=== PATIENT | female | born 1995 | race Caucasian/White ===

== ENCOUNTER 2020-02-25 23:14 | Outpatient (CLI) | payer BC ==
[2020-02-26 01:15] VITALS: BP 130/82; PULSE 85; RESP 16; TEMP 96
--- NOTE | 2020-03-27 18:54 | P.MSEPDOC ---
Presenting Problems - Arrival Data Date of Arrival on Unit: 02/26/20 Time of Arrival on Unit: 23:14 Mode of Transport: Ambulatory - Complaint OB-Reason for Admission/Chief Complaint: Decreased Movement Comment: Patient states she has not felt the baby move since last evening around. midnight. She also states she "failed" an NST last week at the doctors office. RN. explained the NST process and handed the patient a button to press when she feels the. baby move. Patient verbalizes understanding. Medical History - Information : 1 Para: 0 Term: 0 : 0 Abortions: Spontaneous or Elective: 0 Number of Living Children: 0 - Gestational Age Gestational Age by CAROL (wks/days): 34 Weeks and 0 Days Review of Systems - Review of Systems Constitutional: No problems Breast: No problems ENT: No problems Cardiovascular: No problems Respiratory: No problems Gastrointestinal: No problems Genitourinary: No problems Musculoskeletal: No problems Neurological: No problems Skin: No problems Vital Signs - Temperature Temperature: 96.0 F Temperature Source: Temporal Artery Scan - Pulse Right Brachial Pulse Rate: 85 Pulse Assessment Method: Automatic Cuff - Respirations Respiratory Rate: 16 Oxygen Delivery Method: Room Air - Blood Pressure Right Arm Blood Pressure: 130/82 Blood Pressure Mean: 98 Blood Pressure Source: Automatic Cuff Medical Screen Scoring (Pre) - Cervical Exam Dilation: Exam Deferred Effacement: Exam Deferred Membranes: Intact - Uterine Contractions Frequency: N/A Duration: N/A Intensity: N/A - Maternal Vital Signs Maternal Temperature: N/A Maternal Blood Pressure: N/A Signs of Preeclampsia: N/A Maternal Respirations: N/A - Maternal Trauma Maternal Trauma: N/A - Assessment - Baby A Baseline FHR: 125 Heart Rate - NICHD Category: Category I (Normal) = 0 NST: Reactive Position: N/A Station: N/A - Total Score - Baby A Total Score - Baby A: 0 - Total Score - Baby B Total Score - Baby B: 0 - Total Score - Baby C Total Score - Baby C: 0 - Level of Risk - Baby A Level of Risk - Baby A: Low (0-5) - Level of Risk - Baby B Level of Risk - Baby B: Low (0-5) - Level of Risk - Baby C Level of Risk - Baby C: Low (0-5) Physician Notification (Pre) - Physician Notified Physician Notified Date: 02/26/20 Physician Notified Time: 00:00 New Order Received: Yes - Notification Comment Comment: RN spoke with . RN notified the DrVanesa that patient arrived to triage. with complaints of decreased movement since midnight the day prior. NST was. completed and reactive. Patient stated she had felt the baby move multiple times since. being here. Patient would like to go home. VItal signs were WNL. Patient to be. discharged with instructions to keep her follow up appt. on Thursday with Dr. Knapp. Patient updated and in agreement.Kick count instructions given and read over with patient. Patient has no. questions at this time. Disposition - Disposition OB Disposition: Discharge to home Discharge Date: 02/26/20 Discharge Time: 00:30 I agree with the RN Medical Screening Exam: Yes Case reviewed; plan agreed upon as documented in EMR&OBIX.: Yes Diagnosis: decreased movement
== END 2020-02-26 00:30 | disposition home or self-care (01) ==
LOC: FBPOP 23:14
PROVIDERS: ATTEND Obstetrics & Gynecology
DX: O36.8130 Decreased fetal movements, third trimester, not applicable or unspecified (principal); Z3A.34 34 weeks gestation of pregnancy
CPT/HCPCS: 59025; 99213

== ENCOUNTER 2020-04-12 06:05 | Inpatient (IN) | payer BC ==
[2020-04-12] MEDS ORDERED: LIDOCAINE 0.5% (PF) 5 MG/ML (50 ML SDV) SQ PRN (06:16)
[2020-04-12] MEDS ORDERED: METHYLERGONOVINE 0.2 MG/ML 1 ML AMP IM PRN (06:16)
[2020-04-12] MEDS ORDERED: OXYTOCIN 10 UNIT/ML 1 ML VIAL IM PRN (06:16)
[2020-04-12] MEDS ORDERED: CARBOPROST TROMETHAMINE 250 MCG/ML 1 ML AMP IM PRN (06:16)
[2020-04-12] MEDS ORDERED: TERBUTALINE 1 MG/ML VIAL SQ PRN (06:16)
[2020-04-12] MEDS: LACTATED RINGERS 1,000 ML IV SCH ×4 (06:24→22:50)
[2020-04-12] MEDS ORDERED: OXYTOCIN 30 UNITS/500 ML NS 30 UNIT in SALINE 1 500ML.BAG IV SCH ×2 (06:30→21:00)
[2020-04-12 06:54] LABS: Anisocytosis Slight; Basophils % (A) 0 %; Eosinophils # (A) 0.1 k/uL (0-0.7); Eosinophils % (A) 1 %; HCT 32.9 % (34.0-46.0); HGB 10.5 gm/dL (11.4-16.0); Hypochromasia Slight; Lymphocytes % (A) 22 %; MCH 25.7 pg (25.0-35.0); MCHC 32.1 g/dL (31.0-37.0); MCV 79.9 fL (80.0-100.0); Mean Platelet Volume 10.3; Monocytes # (A) 0.4 k/uL (0-1.0); Monocytes % (A) 5 %; Neutrophils # (A) 6.4 k/uL (1.3-7.7); Neutrophils % (A) 71 %; Platelet Count 258 k/uL (150-450); RBC 4.11 m/uL (3.80-5.40); RDW 16.5 % (11.5-15.5); WBC 9.1 k/uL (3.8-10.6)
--- NOTE | 2020-04-12 08:37 | P.HPOB ---
History of Present Illness H&P Date: 04/12/20 Chief Complaint: IUP at 40-4/7 weeks, postdates This is a 24-year-old 1 para 0 at 40-4/7 weeks that presents to labor and delivery for induction of labor. Patient has been receiving routine care that has been essentially uncomplicated. Patient notes good movement denies contractions vaginal bleeding or loss of fluid. On bloodwork patient has a blood type of O+, rubella status immune, hepatitis B surface antigen negative, HIV negative, group beta strep is negative. Review of Systems Constitutional: Denies chills, Denies fatigue, Denies fever Ears, nose, mouth and throat: Denies headache Cardiovascular: Reports leg edema Gastrointestinal: Denies nausea, Denies vomiting Genitourinary: Reports Past Medical History Past Medical History: No Reported History History of Any Multi-Drug Resistant Organisms: None Reported Past Surgical History: No Surgical Hx Reported Past Anesthesia/Blood Transfusion Reactions: No Reported Reaction Past Psychological History: No Psychological Hx Reported Smoking Status: Never smoker Past Alcohol Use History: None Reported Past Drug Use History: None Reported - Past Family History Mother Family Medical History: Asthma Father Family Medical History: Hypertension Medications and Allergies Home Medications Medication Instructions Recorded Confirmed Type Pnv,Calcium 72/Iron/Folic Acid 1 tab PO DAILY 11/17/19 04/12/20 History [ Plus Tablet] Allergies Allergy/AdvReac Type Severity Reaction Status Date / Time No Known Allergies Allergy Verified 04/12/20 06:15 Exam Osteopathic Statement: *. No significant issues noted on an osteopathic structural exam other than those noted in the History and Physical/Consult. Vital Signs Temp Pulse Resp BP Pulse Ox 04/12/20 06:18 96.2 F L 113 H 16 140/82 98 Intake and Output 04/11/20 04/12/20 04/12/20 22:59 06:59 14:59 Other: Weight 104.78 kg Targeted physical exam is performed in this date and director prison a well-nourished well-developed female in no acute distress, breathing is noted to nonlabored, heart has regular rhythm, abdomen is gravid and appropriate for gestational age, heart tones returned be category 1 and she is mark every 4 minutes. On cervical exam she is 1/50/-2, amniotomy is performed and clear fluid was obtained. Results Result Diagrams: 04/12/20 06:25 Abnormal Lab Results - Last 24 Hours (Table) 04/12/20 Range/Units 06:25 Hgb 10.5 L (11.4-16.0) gm/dL Hct 32.9 L (34.0-46.0) % MCV 79.9 L (80.0-100.0) fL RDW 16.5 H (11.5-15.5) % Assessment and Plan (1) Post-dates Current Visit: Yes Status: Acute Code(s): O48.0 - POST-TERM SNOMED Code(s): 53014773 Plan: This 24-year-old 1 para 0 at 40-4/7 weeks is admitted to labor and [facility] for induction of labor secondary to postdates. IV Pitocin is begun per hospital protocol. Stadol and epidural are discussed patient will decide which she desires.
[2020-04-12] MEDS: PRENATAL VIT-IRON-FOLIC ACID 1 EACH CAP PO SCH (11:38)
[2020-04-12] MEDS: BUTORPHANOL 1 MG/ML 1 ML VIAL IV PRN ×2 (14:17→16:15)
[2020-04-12] MEDS ORDERED: ROPIVACAINE 5MG/ML 20ML VIAL ONE (17:06)
[2020-04-12] MEDS ORDERED: SODIUM CHLORIDE 0.9% 100 ML BAG ONE (17:06)
[2020-04-12] MEDS ORDERED: fentaNYL (PF) 50 MCG/ML 5 ML AMP ONE (17:06)
[2020-04-12] MEDS ORDERED: CITRIC ACID-SODIUM CITRATE 15 ML CUP PO ONE (20:52)
[2020-04-12] MEDS ORDERED: ONDANSETRON 4 MG/2 ML VIAL IVP PRN (20:54)
[2020-04-12] MEDS ORDERED: ZOLPIDEM 5 MG TAB PO PRN (20:54)
[2020-04-12] MEDS ORDERED: NALOXONE 0.4 MG/ML 1 ML VIAL IV PRN (20:54)
[2020-04-12] MEDS ORDERED: METOCLOPRAMIDE 5 MG/ML 2 ML VIAL IVP PRN (20:54)
[2020-04-12] MEDS ORDERED: diphenhydrAMINE 50 MG CAP PO PRN (20:54)
[2020-04-12] MEDS ORDERED: diphenhydrAMINE 25 MG CAP PO PRN (20:54)
[2020-04-12] MEDS ORDERED: diphenhydrAMINE 50 MG/ML 1 ML VIAL IVP PRN ×2 (20:54)
[2020-04-12] MEDS ORDERED: SIMETHICONE 80 MG CHEWABLE PO PRN (20:54)
[2020-04-12] MEDS ORDERED: ONDANSETRON 4 MG/2 ML VIAL ONE (21:10)
[2020-04-12] MEDS ORDERED: MIDAZOLAM 2 MG/2 ML VIAL ONE (21:10)
[2020-04-12] MEDS ORDERED: MORPHINE SULFATE (PF) 0.3 MG/0.3 ML SYR ONE (21:10)
[2020-04-12] MEDS ORDERED: HYDROmorphone (PF) 1 MG/ML ONE (21:10)
--- NOTE | 2020-04-12 22:11 | P.OP ---
Date of Procedure: 04/12/20 Preoperative Diagnosis: IUP @ 40 4/7 weeks, arrest of dilation and descent, meconium stained fluid Postoperative Diagnosis: same Procedure(s) Performed: Primary section Anesthesia: epidural Surgeon: Malgorzata Knapp Health Information Tech #1: Paulette Panchal Estimated Blood Loss (ml): 800 IV fluids (ml): 2,000 Urine output (ml): 300 Pathology: other (Placenta) Condition: stable Disposition: observation Indications for Procedure: This is a 24-year-old 1 para 0 at 40-4/7 weeks that presented earlier today for induction of labor secondary to postdates. Patient was admitted and Pitocin induction of labor was begun amniotomy was performed and clear fluid was obtained. Patient made very minimal progress throughout the day eventually stalling at 5 cm. Infant was noted to be a -2 station with no change in station throughout the labor process. Decision for primary was discussed with patient patient states understanding and patient was taken back to the operating suite. Risks were reviewed with patient in detail including but not limited to infection, bleeding, damage to bladder, bowel, injury. Patient stated understanding and questions were answered. Operative Findings: Viable female infant delivered at 2125, weight of 7 lbs. 4 oz. and Apgars of 9 and 9 at one and 5 minutes respectively Description of Procedure: Patient was taken back to the operating suite where epidural anesthesia was found be adequate. She was prepped and draped in the normal sterile fashion in the dorsal supine position a Pfannenstiel skin incision was made the scalpel and carried through the underlying layer of fascia with the couple. The fascia was then incised in the midline and extended laterally. The superior aspect of the fascial incision was then grasped omkar clamps, elevated and underlying rectus muscles dissected off sharply. Attention was then turned to the inferior aspect the fascial incision which was grasped with [place] clamps, elevated and underlying rectus muscles dissected off sharply. Rectus muscles were in the midline the peritoneum was identified and entered. This incision was then extended superiorly and inferiorly with good visualization the bladder. The bladder blade was then inserted. The vesicouterine peritoneum was identified and the bladder flap was then created using blunt dissection. Hysterotomy incision was made with the scalpel the was encountered in a vertex presentation. The infant was then delivered in the usual fashion. The vocal cord was doubly clamped and cut and cord blood was then taken. The was handed off to awaiting RN. The placenta was then delivered manually with a three-vessel cord being noted. The uterus was delivered from the abdomen and the uterine incision was closed with 0 Vicryl in a running fashion from one lateral edge the other. A second imbricating suture was used. Bleeding was noted on the left-hand side of the uterus in multiple cobavw-el-yilbr sutures were used to obtain hemostasis. FloSeal was placed along the hysterotomy incision. The English was noted be draining clear yellow urine throughout the procedure. The uterus was returned to the abdomen prior to FloSeal application. The gutters were cleared of all clots and debris and hemostasis was appreciated. The peritoneum was loosely reapproximated. The fascia was then closed with 0 Vicryl in a running fashion from one lateral edge the other. The subcu cutaneous tissue was irrigated and found to be hemostatic. The subcu tissue was then closed with 3-0 Vicryl in a running fashion. The skin was then closed with 4-0 Vicryl in a subcuticular fashion. Steri-Strips and sterile dressings were applied. All counts were noted be correct times 2 at the end of the procedure. Patient and infant tolerated delivery well and are resting comfortably.
[2020-04-12] MEDS: ACETAMINOPHEN IV (For NPO) 1,000 MG in EMPTY BAG 1 BAG IVPB SCH (22:48)
[2020-04-12 23:40] LABS: Anisocytosis Slight; HCT 27.2 % (34.0-46.0); Hypochromasia Slight; MCH 26.4 pg (25.0-35.0); MCHC 33.1 g/dL (31.0-37.0); MCV 79.8 fL (80.0-100.0); Mean Platelet Volume 10.6; Platelet Count 222 k/uL (150-450); RBC 3.41 m/uL (3.80-5.40); RDW 16.6 % (11.5-15.5); WBC 19.6 k/uL (3.8-10.6)
[2020-04-13] MEDS: IBUPROFEN IV 800 MG in SODIUM CHLORIDE 0.9% 250 ML IV SCH ×4 (04:06→21:41)
[2020-04-13] MEDS: IBUPROFEN 600 MG TAB PO SCH ×4 (04:29→22:15)
[2020-04-13] MEDS: ACETAMINOPHEN IV (For NPO) 1,000 MG in EMPTY BAG 1 BAG IVPB SCH (05:39)
[2020-04-13] MEDS: LACTATED RINGERS 1,000 ML IV SCH ×3 (05:46→21:39)
[2020-04-13] MEDS: PRENATAL VIT-IRON-FOLIC ACID 1 EACH CAP PO SCH (08:16)
[2020-04-13] MEDS: SENNOSIDES-DOCUSATE SODIUM 1 EACH TAB PO SCH ×2 (08:16→20:01)
--- NOTE | 2020-04-13 08:44 | P.PNOBGPC ---
Subjective - Subjective Principal diagnosis: Postop day 1, low transverse section Interval history: Patient did well overnight. She is ambulate without difficulty. English came out about 5:45 this morning no spontaneous void yet. No nausea or vomiting tolerating clear liquids. She states her pain is well-controlled. She is breast-feeding Patient reports: Reports appetite normal, Reports voiding normally, Reports pain well controlled, Reports ambulating normally [place]: doing well, nursing well Objective - Vital Signs Latest vital signs: Vital Signs Temp Pulse Resp BP Pulse Ox 04/13/20 08:00 97.7 F 89 16 130/77 99 04/13/20 04:00 98.8 F 92 16 112/71 100 04/13/20 00:07 98.1 F 112 H 16 124/67 99 04/12/20 23:37 99 16 119/62 99 04/12/20 23:07 102 H 16 121/62 94 L 04/12/20 22:52 88 16 133/77 99 04/12/20 22:37 87 16 127/63 100 04/12/20 22:22 118 H 16 129/78 100 04/12/20 22:07 97.1 F L 112 H 16 131/80 98 Intake and Output 04/12/20 04/13/20 04/13/20 22:59 06:59 14:59 Intake Total 2000 Output Total 1200 1100 Balance 800 -1100 Intake: IV 2000 Output: Urine 300 1100 Uretheral (English) 800 Estimated Blood Loss 900 - Exam Extremities: Present: normal, edema Abdomen: Present: normal appearance, soft Incision: Present: normal, dry, intact Uterus: Present: normal, firm - Labs Labs: Abnormal Lab Results - Last 24 Hours (Table) 04/12/20 Range/Units 22:50 WBC 19.6 H (3.8-10.6) k/uL RBC 3.41 L (3.80-5.40) m/uL Hgb 9.0 L D (11.4-16.0) gm/dL Hct 27.2 L (34.0-46.0) % MCV 79.8 L (80.0-100.0) fL RDW 16.6 H (11.5-15.5) % Assessment and Plan (1) Post-dates Current Visit: Yes Status: Acute Code(s): O48.0 - POST-TERM SNOMED Code(s): 80758871 (2) Arrest of dilation, delivered, current hospitalization Current Visit: Yes Status: Acute Code(s): O62.1 - SECONDARY UTERINE INERTIA SNOMED Code(s): 44861155 (3) Arrest of descent, delivered, current hospitalization Current Visit: Yes Status: Acute Code(s): O62.1 - SECONDARY UTERINE INERTIA SNOMED Code(s): 21864615 (4) S/P section Current Visit: Yes Status: Acute Code(s): Z98.891 - HISTORY OF UTERINE SCAR FROM PREVIOUS SURGERY SNOMED Code(s): 832061978 Plan: This 24-year-old G1 now P1 status post primary for arrest of descent and dilation is doing well. Will plan routine postoperative care today, anticipate discharge home tomorrow discharge instructions are reviewed with patient
--- NOTE | 2020-04-13 08:49 | P.PN ---
Progress Note - Text 04/13/20 818am 24-year-old female status post with an epidural catheter. Patient was bolused with Duramorph after the procedure, patient has VAS of 1 at rest. She has complains of mild pruritus. Doing fine this morning
[2020-04-13 09:42] LABS: Anisocytosis Slight; Basophils % (A) 0 %; Eosinophils # (A) 0.1 k/uL (0-0.7); Eosinophils % (A) 1 %; HCT 24.9 % (34.0-46.0); HGB 8.2 gm/dL (11.4-16.0); Hypochromasia Slight; Lymphocytes # (A) 1.7 k/uL (1.0-4.8); Lymphocytes % (A) 18 %; MCH 26.5 pg (25.0-35.0); MCHC 32.9 g/dL (31.0-37.0); MCV 80.6 fL (80.0-100.0); Mean Platelet Volume 10.4; Monocytes # (A) 0.5 k/uL (0-1.0); Monocytes % (A) 5 %; Neutrophils # (A) 7.5 k/uL (1.3-7.7); Neutrophils % (A) 76 %; Platelet Count 183 k/uL (150-450); RBC 3.09 m/uL (3.80-5.40); RDW 16.6 % (11.5-15.5); WBC 9.9 k/uL (3.8-10.6)
[2020-04-13] MEDS: ACETAMINOPHEN TAB 500 MG TAB PO PRN (22:04)
[2020-04-14] MEDS: IBUPROFEN 600 MG TAB PO SCH ×2 (00:09→06:16)
[2020-04-14] MEDS: ACETAMINOPHEN TAB 500 MG TAB PO PRN (04:22)
[2020-04-14] MEDS: PRENATAL VIT-IRON-FOLIC ACID 1 EACH CAP PO SCH (08:27)
[2020-04-14] MEDS: SENNOSIDES-DOCUSATE SODIUM 1 EACH TAB PO SCH (08:27)
[2020-04-14 08:39] VITALS: BP 132/84; PULSE 78; RESP 18; TEMP 97.9
--- NOTE | 2020-04-15 09:21 | P.DS ---
Providers Date of admission: 04/12/20 06:05 Expected date of discharge: 04/14/20 Attending physician: Malgorzata Knapp Primary care physician: Stated None Hospital Course: This is a 24-year-old female 1 para 0 who presented in active labor with an unremarkable . Ultimately the decision was made for primary low transverse section for arrest of dilatation and descent, 5 cm dilated. Please see dictated history and physical for details. Patient underwent a primary low transverse section which was unremarkable. [place] female weighed 04/10/2004 grams or 7 lbs. 1 oz. Surgery was unremarkable, please see dictated operative note for details. Postoperatively the patient did very well. By postoperative day #2 she was voiding, ambulating, passing flatus without difficulty. Vital signs are stable and she is afebrile. Incision is clean and dry, intact with Steri-Strips applied. Pain is well controlled, a prescription for analgesic is provided prior to discharge home per Dr. Barrera. Patient is reminded no intercourse, tampons or douching. She will use the [place] as written. She will call with any fevers shakes or chills, foul smelling or copious lochia, with the passage of large blood clots, with any pain not alleviated by these products, or indeed with any concerns. will follow-up with brine process operator as per recommendations. Contraceptive options have been discussed briefly, and will be discussed further in the office as appropriate. Assessment: Doing well postoperative day #2 Patient Condition at Discharge: Good Plan - Discharge Summary Discharge Rx Participant: No New Discharge Prescriptions: No Action Pnv,Calcium 72/Iron/Folic Acid [ Plus Tablet] 1 tab PO DAILY Discharge Medication List Pnv,Calcium 72/Iron/Folic Acid [ Plus Tablet] 1 tab PO DAILY 11/17/19 [History] Follow up Appointment(s)/Referral(s): Malgorzata Knapp DO [Doctor of Osteopathic Medicine] - 2 Weeks Discharge Disposition: HOME SELF-CARE
== END 2020-04-14 11:45 | disposition home or self-care (01) | DRG 788 ==
LOC: 4FBP 06:05
PROVIDERS: ADMIT Obstetrics & Gynecology Obstetrics; ATTEND Obstetrics & Gynecology Obstetrics
PROC: 10907ZC Drainage of Amniotic Fluid, Therapeutic from Products of Conception, Via Natural or Artificial Opening (ICD-10-PCS; principal; 2020-04-12 21:01)
PROC: 10D00Z1 Extraction of Products of Conception, Low, Open Approach (ICD-10-PCS; principal; 2020-04-12 21:01)
PROC: 3E033VJ Introduction of Other Hormone into Peripheral Vein, Percutaneous Approach (ICD-10-PCS; principal; 2020-04-12 21:01)
DX: O48.0 Post-term pregnancy (principal); L29.9 Pruritus, unspecified; O62.1 Secondary uterine inertia; O77.0 Labor and delivery complicated by meconium in amniotic fluid; O99.73 Diseases of the skin and subcutaneous tissue complicating the puerperium; Z37.0 Single live birth; Z3A.40 40 weeks gestation of pregnancy; Z82.5 Family history of asthma and other chronic lower respiratory diseases; Z82.49 Family history of ischemic heart disease and other diseases of the circulatory system
CPT/HCPCS: 85025; 85027; 86850; 86900; 86901; 88307

== ENCOUNTER 2024-08-09 10:08 | Inpatient (IN) | payer MEDICAID, OTHER ==
[2024-08-09] MEDS ORDERED: METHYLERGONOVINE 0.2 MG/ML 1 ML AMP IM PRN (10:22)
[2024-08-09] MEDS ORDERED: OXYTOCIN 10 UNIT/ML 1 ML VIAL IM PRN (10:22)
[2024-08-09] MEDS ORDERED: TRANEXAMIC 1,000 MG/100ML-NACL 1,000 MG in EMPTY BAG 1 BAG IV PRN (10:22)
[2024-08-09] MEDS ORDERED: CARBOPROST TROMETHAMINE 250 MCG/ML 1 ML AMP IM PRN (10:22)
[2024-08-09] MEDS ORDERED: OXYTOCIN 30 UNITS/500 ML NS 30 UNIT in SALINE 1 500ML.BAG IV SCH (10:30)
[2024-08-09] MEDS: LACTATED RINGERS 1,000 ML IV ONE (10:37)
[2024-08-09 10:48] LABS: Basophils # (A) 0.02 10*3/uL (0.00-0.10); Basophils % (A) 0.2 %; Eosinophils # (A) 0.03 10*3/uL (0.04-0.35); Eosinophils % (A) 0.3 %; HCT 32.9 % (37.2-46.3); HGB 10.9 g/dL (12.0-15.0); Lymphocytes # (A) 1.39 10*3/uL (0.90-5.00); Lymphocytes % (A) 15.5 %; MCH 28.8 pg (27.0-32.0); MCHC 33.1 g/dL (32.0-37.0); MCV 87.0 fL (80.0-97.0); Monocytes # (A) 0.63 10*3/uL (0.20-1.00); Monocytes % (A) 7.0 %; Neutrophils # (A) 6.88 10*3/uL (1.80-7.70); Neutrophils % (A) 76.6 %; Platelet Count 209 10*3/uL (140-440); RBC 3.78 10*6/uL (4.10-5.20); RDW 14.4 % (11.5-14.5); WBC 8.99 10*3/uL (4.50-10.00)
[2024-08-09] MEDS: LACTATED RINGERS 1,000 ML IV SCH ×2 (11:27→15:47)
[2024-08-09] MEDS: CITRIC ACID-SODIUM CITRATE 15 ML CUP PO ONE (11:28)
[2024-08-09] MEDS ORDERED: ONDANSETRON 4 MG/2 ML VIAL ONE (12:22)
[2024-08-09] MEDS ORDERED: OXYTOCIN 30 UNITS/500 ML NS BAG IV ONE (12:22)
[2024-08-09] MEDS ORDERED: MORPHINE SULFATE (PF) 0.3 MG/0.3 ML SYR ONE (12:22)
--- NOTE | 2024-08-09 13:13 | P.HPOB ---
History of Present Illness H&P Date: 08/09/24 Chief Complaint: IUP at 39 weeks, history of section x 1 desires repeat 28-year-old G2, P1 at 39 weeks of that presents for repeat section. Patient has been receiving routine care which has been essentially uncomplicated. Patient denies concerns this morning notes good movement denies vaginal bleeding or loss of fluid. On blood work this patient is a blood type of O+, rubella status immune, hepatitis B surface engine negative, HIV negative, RPR nonreactive, group A strep culture negative. Review of Systems Constitutional: Denies chills, Denies fatigue, Denies fever Ears, nose, mouth and throat: Denies headache Cardiovascular: Reports leg edema Respiratory: Denies dyspnea Gastrointestinal: Denies nausea, Denies vomiting Genitourinary: Reports Past Medical History Past Medical History: No Reported History History of Any Multi-Drug Resistant Organisms: None Reported Past Surgical History: Section, Orthopedic Surgery Past Anesthesia/Blood Transfusion Reactions: No Reported Reaction Past Psychological History: ADD/ADHD, Anxiety, Depression Smoking Status: Never smoker Past Alcohol Use History: None Reported Past Drug Use History: None Reported - Past Family History Mother Family Medical History: Asthma, Coronary Artery Disease (CAD) Father Family Medical History: Hypertension Medications and Allergies Home Medications Medication Instructions Recorded Confirmed Type Vit No.180/Iron/Folic 1 tab PO DAILY 11/17/19 08/09/24 History [ Plus Tablet] Dextroamphetamine/Amphetamine 20 mg PO DAILY 08/09/24 08/09/24 History [Adderall Xr 20 mg Capsule] Sertraline [Zoloft] 25 mg PO DAILY 08/09/24 08/09/24 History Allergies Allergy/AdvReac Type Severity Reaction Status Date / Time No Known Allergies Allergy Verified 08/09/24 10:20 Exam Osteopathic Statement: *. No significant issues noted on an osteopathic structural exam other than those noted in the History and Physical/Consult. Vital Signs Temp Pulse Resp BP Pulse Ox 08/09/24 10:28 96.6 F L 88 16 115/68 99 Intake and Output 08/08/24 08/09/24 08/09/24 22:59 06:59 14:59 Other: Weight 107.501 kg Targeted physical exam is performed today in general is well-nourished well- developed female in no acute distress, breathing is nonlabored, heart has a regular rate and rhythm, abdomen is gravid, cervical exam is deferred, heart tones are noted to be category 1 and she is not mark Results Result Diagrams: 08/09/24 10:25 Abnormal Lab Results - Last 24 Hours (Table) 08/09/24 Range/Units 10:25 RBC 3.78 L (4.10-5.20) 10*6/uL Hgb 10.9 L (12.0-15.0) g/dL Hct 32.9 L (37.2-46.3) % Eosinophils # 0.03 L (0.04-0.35) 10*3/uL Assessment and Plan (1) Term Current Visit: Yes Status: Acute Code(s): Z34.90 - ENCNTR FOR SUPRVSN OF NORMAL , UNSP, UNSP TRIMESTER SNOMED Code(s): 60962428 (2) History of section Current Visit: Yes Status: Acute Code(s): Z98.891 - HISTORY OF UTERINE SCAR FROM PREVIOUS SURGERY SNOMED Code(s): 204830668 Plan: Admit to labor and delivery Repeat section, anesthesia into see patient Informed consent obtained Risks reviewed including not limited to infection, bleeding, damage to bladder, bowel, ureteric, injury. Questions were answered
--- NOTE | 2024-08-09 13:18 | P.OP ---
Date of Procedure: 08/09/24 Preoperative Diagnosis: Postdate , history of section x 1 desires repeat Postoperative Diagnosis: Same Procedure(s) Performed: Repeat section Anesthesia: spinal Surgeon: Malgorzata Knapp Estimated Blood Loss (ml): 263 IV fluids (ml): 1,000 Urine output (ml): 300 Pathology: none sent Condition: stable Disposition: observation Indications for Procedure: History of section x 1 desires repeat Operative Findings: Viable male delivered at 1248, weight of 7 pounds 9 ounces via vacuum assist, Apgars of 9 and 9 at 1 and 5 minutes respectively. Description of Procedure: The patient was prepped and draped in the usual fashion after spinal anesthesia was administered by the anesthesia department. A Pfannenstiel incision was made and extended of the abdominal cavity without difficulty. The bladder peritoneum was elevated and incised and reflected distally. A 2 cm incision was made in the transverse plane of the lower uterine segment to enter the uterus at which time clear fluid was noted. The incision was extended in both directions using the bandage scissors. The head was encountered within the field and delivered up and through the incision where the nose and mouth were thoroughly suctioned. Remainder of the infant was delivered onto the surgical field where the cord was doubly clamped, cut, and the infant was passed for resuscitative measures with weight and Apgars as noted above. A segment of cord was then doubly clamped, cut, and set aside should cord gases become necessary. The placenta was delivered manually, intact, and was grossly normal with a grossly normal three-vessel cord. The uterus was exteriorized and the interior cavity of the uterus swept of any remaining placental and membranous fragments with a laparotomy sponge. The margins of the incision were grasped with [place] clamps and the incision closed in 2 layers. The hysterotomy incision was closed with a running locking layer of 0 chromic catgut from margin to margin. Any small points of bleeding were then made hemostatic with the Bovie. The left fallopian tube was then elevated and transected with the LigaSure to the cornual region, this was then repeated on the opposite side. The posterior cul-de-sac was suctioned with a guard and the uterine and ovarian findings are as noted above. The uterus was replaced within the abdominal cavity and the gutters swept of any remaining blood fluid or clot. The incision was again reexamined and hemostasis was noted to be excellent. Any small point of bleeding were made hemostatic with the Bovie. Once hemostasis was achieved the parietal peritoneum was loosely reapproximated. The layer of muscles were examined and made hemostatic with the Bovie. Attention was then turned to the fascia which was closed with Vicryl in a running fashion from 1 lateral edge to the other. The subcutaneous tissues were irrigated, made hemostatic with the Bovie, and reapproximated with a running stitch of 30 Vicryl. The skin was reapproximated with 4-0 Vicryl. Estimated blood loss for the case was approximately 263 mL. All sponge instrument and needle counts are correct. There were no complications. The patient tolerated the procedure well and proceeded to the recovery room in stable condition. Both mother and are resting comfortably in recovery. A physician surgical consultant was utilized for the entire procedure due to the need for tissue retraction, dissection of vital structures, prevention and management of blood loss, and reduction in overall operative and anesthesia time as is the standard of care.
[2024-08-09] MEDS ORDERED: ONDANSETRON 4 MG/2 ML VIAL IVP PRN (13:29)
[2024-08-09] MEDS ORDERED: diphenhydrAMINE 25 MG CAP PO PRN (13:29)
[2024-08-09] MEDS ORDERED: diphenhydrAMINE 50 MG/ML 1 ML VIAL IVP PRN (13:29)
[2024-08-09] MEDS ORDERED: ZOLPIDEM 5 MG TAB PO PRN (13:29)
[2024-08-09] MEDS ORDERED: NALOXONE 0.4 MG/ML 1 ML VIAL IV PRN (13:29)
[2024-08-09] MEDS: ACETAMINOPHEN IV (For NPO) 1,000 MG in EMPTY BAG 1 BAG IVPB ONE (13:54)
[2024-08-09] MEDS: diphenhydrAMINE 50 MG/ML 1 ML VIAL IVP PRN (15:13)
[2024-08-09] MEDS: METOCLOPRAMIDE 5 MG/ML 2 ML VIAL IVP PRN (18:20)
[2024-08-09] MEDS: IBUPROFEN 800 MG TAB PO SCH (20:09)
[2024-08-09] MEDS: ONDANSETRON 4 MG/2 ML VIAL IVP PRN (20:09)
[2024-08-09] MEDS: SENNOSIDES-DOCUSATE SODIUM 1 EACH TAB PO SCH (20:10)
[2024-08-09] MEDS: ACETAMINOPHEN TAB 500 MG TAB PO SCH (23:49)
[2024-08-10] MEDS: SIMETHICONE 80 MG CHEWABLE PO PRN (03:59)
--- NOTE | 2024-08-10 06:15 | P.PN ---
Progress Note - Text 08/10/24 530am 38-year-old female status post with spinal Duramorph. Patient seen and evaluated for postop pain control, she has a VAS of 1 with complaints of pruritus which should subside. No complaints of nausea vomiting or headaches.
[2024-08-10 06:49] LABS: Basophils # (A) 0.04 10*3/uL (0.00-0.10); Basophils % (A) 0.5 %; Eosinophils # (A) 0.08 10*3/uL (0.04-0.35); Eosinophils % (A) 1.0 %; HCT 31.5 % (37.2-46.3); HGB 10.3 g/dL (12.0-15.0); Lymphocytes # (A) 1.80 10*3/uL (0.90-5.00); Lymphocytes % (A) 21.9 %; MCH 28.7 pg (27.0-32.0); MCHC 32.7 g/dL (32.0-37.0); MCV 87.7 fL (80.0-97.0); Monocytes # (A) 0.52 10*3/uL (0.20-1.00); Monocytes % (A) 6.3 %; Neutrophils # (A) 5.75 10*3/uL (1.80-7.70); Neutrophils % (A) 69.8 %; Platelet Count 200 10*3/uL (140-440); RBC 3.59 10*6/uL (4.10-5.20); RDW 14.5 % (11.5-14.5); WBC 8.23 10*3/uL (4.50-10.00)
--- NOTE | 2024-08-10 08:18 | P.PNOBGPC ---
Subjective - Subjective Principal diagnosis: Postop day 1, repeat section with b/l salpingectomy Interval history: Patient is doing well postoperatively. She is ambulating and voiding without difficulty. She is tolerating regular diet without nausea or vomiting. Lochia is minimal to moderate. Patient reports: Reports appetite normal, Reports voiding normally, Reports pain well controlled, Reports ambulating normally [place]: doing well Objective - Vital Signs Latest vital signs: Vital Signs Temp Pulse Resp BP Pulse Ox 08/10/24 00:00 90 16 117/76 08/09/24 20:00 66 16 114/70 08/09/24 15:17 56 L 18 112/66 98 08/09/24 15:02 58 L 16 116/68 98 08/09/24 14:47 75 16 112/70 99 08/09/24 14:32 62 16 121/67 98 08/09/24 14:17 76 16 114/57 98 08/09/24 14:02 61 16 122/59 99 08/09/24 13:47 65 18 112/59 99 08/09/24 13:32 79 20 111/57 99 08/09/24 13:17 97.0 F L 98 20 134/77 98 08/09/24 10:28 96.6 F L 88 16 115/68 99 Intake and Output 08/09/24 08/10/24 08/10/24 22:59 06:59 14:59 Intake Total 600 Output Total 1640 900 Balance -1640 -300 Intake: Oral 600 Output: Urine 1600 900 Uretheral (English) 300 Output, Quantitative 40 Blood Loss - Exam Extremities: Present: normal, edema Abdomen: Present: normal appearance, soft Incision: Present: normal, dry Uterus: Present: normal, firm - Labs Labs: Abnormal Lab Results - Last 24 Hours (Table) 08/09/24 08/10/24 Range/Units 10:25 06:25 RBC 3.78 L 3.59 L (4.10-5.20) 10*6/uL Hgb 10.9 L 10.3 L (12.0-15.0) g/dL Hct 32.9 L 31.5 L (37.2-46.3) % Eosinophils # 0.03 L (0.04-0.35) 10*3/uL Assessment and Plan (1) Term Current Visit: Yes Status: Acute Code(s): Z34.90 - ENCNTR FOR SUPRVSN OF NORMAL , UNSP, UNSP TRIMESTER SNOMED Code(s): 00135197 (2) History of section Current Visit: Yes Status: Acute Code(s): Z98.891 - HISTORY OF UTERINE SCAR FROM PREVIOUS SURGERY SNOMED Code(s): 901076224 (3) Family planning Current Visit: Yes Status: Acute Code(s): Z30.09 - ENCOUNTER FOR OT GENERAL CNSL AND ADVICE ON CONTRACEPTION SNOMED Code(s): 900129451 (4) S/P section Current Visit: No Status: Acute Code(s): Z98.891 - HISTORY OF UTERINE SCAR FROM PREVIOUS SURGERY SNOMED Code(s): 547329706 Plan: Patient is doing well postoperatively, continue routine postoperative care. Anticipate discharge home tomorrow
[2024-08-10] MEDS: PRENATAL VIT-IRON-FOLIC ACID 1 EACH TABLET PO SCH (08:20)
[2024-08-10] MEDS: SERTRALINE 25 MG TAB PO SCH (08:21)
[2024-08-10] MEDS ORDERED: IBUPROFEN 800 MG TAB PO SCH (18:00)
[2024-08-11 02:25] VITALS: RESP 16
[2024-08-11 08:45] VITALS: BP 114/73; PULSE 77; TEMP 97.8
--- NOTE | 2024-08-11 12:17 | P.DS ---
Providers Date of admission: 08/09/24 10:08 Expected date of discharge: 08/11/24 Attending physician: Malgorzata Knapp Primary care physician: Stated None - Discharge Diagnosis(es) (1) Term Current Visit: Yes Status: Acute (2) History of section Current Visit: Yes Status: Acute (3) Family planning Current Visit: Yes Status: Acute (4) S/P section Current Visit: No Status: Acute Hospital Course: This is a 28-year-old 2 now para 2 that presented to labor and delivery on 08/09 for scheduled repeat section with bilateral salpingectomy. Patient has been receiving routine care which has been essentially uncomplicated. For full details of this patient please see the dictated history and physical. Patient was taken back to the operating suite where repeat section under spinal anesthesia was performed with bilateral salpingectomy. Patient delivered a viable male at 1248 via vacuum assist weight of 7 pounds 9 ounces, Apgars of 9 and 9 at 1 and 5 minutes respectively. For full details of the please see the dictated operative report. Patient's postoperative course has been uneventful. This postoperative day #2 she is ambulating and voiding without difficulty. She is tolerating a regular diet without nausea or vomiting. She states her pain is well-controlled. She would like discharge home. Patient Condition at Discharge: Good Plan - Discharge Summary New Discharge Prescriptions: No Action Vit No.180/Iron/Folic [ Plus Tablet] 1 tab PO DAILY Dextroamphetamine/Amphetamine [Adderall Xr 20 mg Capsule] 20 mg PO DAILY Sertraline [Zoloft] 25 mg PO DAILY Discharge Medication List Vit No.180/Iron/Folic [ Plus Tablet] 1 tab PO DAILY 11/17/19 [History] Dextroamphetamine/Amphetamine [Adderall Xr 20 mg Capsule] 20 mg PO DAILY 03/05 [History] Sertraline [Zoloft] 25 mg PO DAILY 08/09/24 [History] Follow up Appointment(s)/Referral(s): Malgorzata Knapp DO [Doctor of Osteopathic Medicine] - 09/21/24 11:00 am (Post Appointment 08-23-2024 at 1:00pm) Patient Instructions/Handouts: (DC) Activity/Diet/Wound Care/Special Instructions: [id number] ibuprofen 600 mg or 3 tablets every 6 hours as needed for pain. No tub baths or intercourse until 6 weeks , routine operative check at 2 weeks Discharge Disposition: HOME SELF-CARE
== END 2024-08-11 12:32 | disposition home or self-care (01) | DRG 785 ==
LOC: 4FBP 10:08
PROVIDERS: ADMIT Obstetrics & Gynecology Obstetrics; ATTEND Obstetrics & Gynecology Obstetrics
PROC: 0UB70ZZ Excision of Bilateral Fallopian Tubes, Open Approach (ICD-10-PCS; 2024-08-09)
PROC: 10D00Z1 Extraction of Products of Conception, Low, Open Approach (ICD-10-PCS; principal; 2024-08-09 12:42)
DX: O48.0 Post-term pregnancy (principal); O34.211 Maternal care for low transverse scar from previous cesarean delivery; O99.344 Other mental disorders complicating childbirth; Z37.0 Single live birth; Z3A.40 40 weeks gestation of pregnancy; F32.A Depression, unspecified; Z30.2 Encounter for sterilization; F41.9 Anxiety disorder, unspecified; F90.9 Attention-deficit hyperactivity disorder, unspecified type; Z79.899 Other long term (current) drug therapy
CPT/HCPCS: 85025; 86850; 86900; 86901; 88302